=== PATIENT | female | born 1975 | race Caucasian/White ===

== ENCOUNTER 2020-08-04 16:57 | Emergency (ER) | payer OTHER, SELFPAY ==
[2020-08-04] VITALS (12 sets, daily range): BP systolic 136–158; BP diastolic 78–110; PULSE 90–113; RESP 21–32; TEMP 36.2; O2SAT 94–99; BMI 38.4
--- NOTE | 2020-08-04 17:50 | DI.RAD.S_ITS ---
PROCEDURE: XR CHEST 1V INDICATIONS: sob TECHNIQUE: One view of the chest was acquired. COMPARISON: None. FINDINGS: Surgical changes and devices: None. Lungs and pleura: Lungs are clear. No pleural effusions or pneumothorax. Mediastinum: Mediastinal contours appear normal. Heart size is normal. Bones and chest wall: No suspicious bony lesions. Overlying soft tissues appear unremarkable. IMPRESSION: No acute disease. Dictated by: Scottie Henderson M.D. on 08/04/2020 at 18:15 Approved by: Scottie Henderson M.D. on 08/04/2020 at 18:16
[2020-08-04 18:15] LABS: Add Manual Diff / Slide Review NO; Basophils Absolute Auto 100 /uL (0-100); Basophils Percent Auto 1.4 % (0-2); Eosinophils Absolute Auto 100 /uL (0-450); Eosinophils Percent Auto 0.8 % (2-4); Hematocrit 44.1 % (36-46); Hemoglobin 14.9 g/dL (12.0-16.0); Lymphocytes Absolute Auto 2600 /uL (1100-4500); Lymphocytes Percent Auto 26.3 % (25-40); Mean Corpuscular HGB Conc 33.8 % (30-36); Mean Corpuscular Hemoglobin 30.5 PG (26-34); Monocytes Absolute Auto 600 /uL (0-900); Monocytes Percent Auto 6.2 % (3-14); Neutrophils Absolute Auto 6500 /uL (1500-7000); Neutrophils Percent Auto 65.3 % (50-75); Platelet Count 367 X10^3/uL (150-400); Red Blood Cell Count 4.89 X10^6/uL (4.0-5.2); White Blood Cell Count 9.9 X10^3/uL (4.5-11.0)
[2020-08-04 18:18] LABS: D Dimer < 200 ng/mL (<230)
[2020-08-04 18:20] LABS: Acetaminophen < 10 ug/mL (10-30); Ethanol (ETOH) < 10 mg/dL; Salicylate < 1.0 mg/dL (<20)
[2020-08-04] MEDS: hydrOXYzine pamoate 25 MG CAPSULE 50 MG PO (18:20)
[2020-08-04 18:21] LABS: Alanine Aminotransferase 22 IU/L (<35); Albumin 4.6 g/dL (3.5-5.0); Albumin Globulin Ratio 1.2 (1.0-2.8); Alkaline Phosphatase 74 U/L (38-126); Amylase 113 U/L (30-110); Aspartate Aminotransferase 22 IU/L (14-36); BUN Creatinine Ratio 11.3 (6-22); Bilirubin Total 0.4 mg/dL (0.2-1.3); Blood Urea Nitrogen 9 mg/dL (7-17); Calcium 10.1 mg/dL (8.4-10.2); Carbon Dioxide 27 mmol/L (22-32); Chloride 103 mmol/L (98-107); Creatine Kinase 67 U/L (30-135); Estimated Glomerular Filt Rate > 60.0 mL/min (>60); Glucose 104 mg/dL (70-100); HEMOLYSIS 23 (0-50); Lipase 91 U/L (23-300); Magnesium 1.9 mg/dL (1.6-2.3); Potassium 4.2 mmol/L (3.4-5.1); Sodium 138 mmol/L (137-145); Total Protein 8.6 g/dL (6.3-8.2)
[2020-08-04] MEDS: SODIUM CHLORIDE 0.9% 1,000 ML 1000 ML IV (18:21)
[2020-08-04 18:26] LABS: UR Morphine/Opiate cutoff 300 Negative (Negative); Ur Creatinine Normal (Normal); Ur Specific Gravity Normal (Normal); Urine Amphetamines Negative (Negative); Urine Barbiturates Negative (Negative); Urine Benzodiazepines Negative (Negative); Urine Cocaine Negative (Negative); Urine MDMA Negative (Negative); Urine Methadone Negative (Negative); Urine Methamphetamines Negative (Negative); Urine Oxycodone Negative (Negative); Urine Phencyclidine Negative (Negative); Urine Tetrahydrocannabinol Negative (Negative); Urine Tricyclic Antidepressant Negative (Negative); Urine pH Normal (Normal)
[2020-08-04 18:33] LABS: NT-proBNP (BNP-Adult 18+) 65 pg/mL (<125); Troponin I < 0.012 ng/mL (0.01-0.034)
[2020-08-04 18:55] LABS: Thyroid Stimulating Hormone 1.37 uIU/mL (0.47-4.68)
[2020-08-04 19:58] LABS: Creatine Kinase 55 U/L (30-135)
[2020-08-04 20:11] LABS: Troponin I < 0.012 ng/mL (0.01-0.034)
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
== END 2020-08-04 21:30 | disposition home or self-care (01) ==
PROVIDERS: Emergency Provider Nurse Practitioner Family; PCP Family Medicine
DX: F41.0 Panic disorder [episodic paroxysmal anxiety] (principal); R00.0 Tachycardia, unspecified; F41.8 Other specified anxiety disorders
CPT/HCPCS: 36415; 71045; 80053; 80305; 80320; 80329; 81003; 81025; 82150; 82550; 83690; 83735; 83880; 84443; 84484; 85025; 85379; 93005; 96360; 96361; 99284; G0480

== ENCOUNTER → 2020-10-04 08:56 | Outpatient (CLI) | payer OTHER, SELFPAY ==
[2020-10-04 10:11] LABS: COVID19 -Nasal RAPID Negative (Negative)
== END ==
PROVIDERS: PCP Family Medicine; Visit Provider Surgery
DX: Z01.812 Encounter for preprocedural laboratory examination (principal); Z11.59 Encounter for screening for other viral diseases
CPT/HCPCS: 87635; C9803

== ENCOUNTER 2020-10-05 12:00 | Day surgery (SDC) | payer OTHER, SELFPAY ==
[2020-10-05 12:17] VITALS: BP 138/90; PULSE 98; RESP 16; TEMP 36.6; O2SAT 99; BMI 38.0
[2020-10-05] MEDS: LACTATED RINGERS 1,000 ML 200 ML IV (12:41)
--- NOTE | 2020-10-05 13:06 | PM.HP.1 ---
History of Present Illness History of Present Illness Date Patient Seen: 10/05/20 Time Patient Seen: 13:07 Chief complaint: SDC Narrative: 45-year-old female morbidly obese significant gastroesophageal reflux here for EGD. Please see H and P from August 2020 for further detail, no interval changes in health. Patient History Medical History Anxiety with depression Bladder problem Chicken pox (~1981) Chronic back pain Chronic cough (~2018) Chronic low back pain Degenerative arthritis of hip (~2014) Fibromyalgia (~2014) GERD (gastroesophageal reflux disease) Heavy menstrual period Hypertension (~1998) Osteoarthritis (~2014) Painful menstrual periods Panic attacks PTSD (post-traumatic stress disorder) Surgical History Anesthesia H/O tubal ligation (~2005) Family & Social History Family History Father Hyperlipidemia Hypertension Heart disease Mother Cancer Depression Brother Mental health problem Grandfather Cancer Family/Other Mental health problem Social History: household members significant other Tobacco & Substance use: Tobacco type cigarettes Smoking Status Current every day smoker Smoking packs per day 0.5 alcohol intake never alcohol intake frequency holiday/special occasion Substance Use Type marijuana Meds Home Medications and Allergies Home Medications Medication Instructions Recorded Confirmed Type bupropion HCl 200 mg tablet,12 hr 100 mg PO DAILY 08/02/20 10/05/20 History sustained-release hydroxyzine HCl 50 mg tablet 50 mg PO TID PRN #60 tab 08/22/20 10/05/20 Rx omeprazole 20 mg capsule,delayed 20 mg PO BID #60 cap 08/22/20 10/05/20 Rx release prazosin 1 mg capsule 1 mg PO BEDTIME #90 cap 08/31/20 10/05/20 Rx Allergies Allergy/AdvReac Type Severity Reaction Status Date / Time No Known Drug Allergies Allergy Verified 10/05/20 12:14 Review of Systems Review of Systems Narrative: A 10 point review of systems is negative except as noted in the HPI Exam Vital Signs (past 8 hours): - 10/05/20 12:17 Temperature 97.9 F Pulse Rate 98 H Respiratory Rate 16 Blood Pressure 138/90 Pulse Oximetry 99 Oxygen Delivery Method Room Air Oxygen Flow Rate 0 Narrative Exam Narrative: General-no acute distress, obese female HEENT-moist mucous membranes, no scleral icterus Neck-supple, no lymphadenopathy Chest- non labored respirations, clear to auscultation bilaterally Cardiac-regular rate no peripheral edema Abdomen-soft, nontender, non distended Extremities-warm, well perfused Neurological-alert and oriented, no focal deficits Assessment & Plan Assessment & Plan narrative: 45-year-old female morbidly obese with GERD here for elective EGD. Technical details of procedure were discussed. Procedural risks including bleeding infection perforation missed diagnosis need for further procedure were discussed. Questions have been answered she is in agreement with this plan.
--- NOTE | 2020-10-05 13:25 | PM.OP.ENDO ---
Operative Date/Time/Diagnoses Date of procedure: 10/05/20 Time of procedure: 13:25 Pre-op diagnosis: GERD Post-op diagnosis: other (hiatal hernia) Procedure & Clinicians Study performed: Esophagoduodenoscopy Same procedure as scheduled: Yes Indications: 45-year-old obese female with worsening GERD here for EGD Surgeon: Enoch Ledezma Procedure Notes Procedure in detail: Patient placed in left lateral decubitus position. Time out was performed. Procedural sedation was administered with Versed and Fentanyl. A bite block was placed. the scope was inserted into the mouth and advanced through the esophagus and into the stomach. The pylorus was intubated and the duodenum was normal to the 1st portion. The scope was retroflexed within the stomach and there was a small hiatal hernia. No ulcers, or gastritis. The scope was withdrawn into the esophagus the Z line was seen at 40 cm from the incisions. There was no Weston's esophagitis or masses or strictures. Stomach was desufflated and scope removed. Patient tolerated procedure well. Sedation minutes: 12 Findings: hiatal hernia Specimen(s): none sent Complications: none Impression: Hiatal hernia Post-procedure Recommendations: Continue medication(s) (Omeprazole) Follow up: as needed Disposition: same day surgery
[2020-10-05] MEDS: LIDOCAINE 4% SOLN 50 ML 20 ML TOP (13:29)
[2020-10-05 13:30] VITALS: BP 111/71; PULSE 88; RESP 18; TEMP 36.4; O2SAT 99
[2020-10-05] MEDS: MIDAZOLAM 5 MG/5 ML VIAL IV (13:30)
[2020-10-05] MEDS: fentaNYL 250 MCG/5 ML INJ IV (13:31)
[2020-10-05 13:35] VITALS: BP 113/73; PULSE 84; RESP 18; O2SAT 99
[2020-10-05 13:40] VITALS: BP 118/75; PULSE 80; RESP 18; O2SAT 96
[2020-10-05 13:45] VITALS: BP 120/78; PULSE 92; RESP 16; O2SAT 97
[2020-10-05 13:50] VITALS: BP 125/76; PULSE 89; RESP 18; TEMP 36.5; O2SAT 96
--- NOTE | 2020-10-05 14:56 | SUR.OPER ---
documented on pyxis fentanyl 100 wasted that was actually given. see EMAR. pharmacy notified
== END 2020-10-05 14:05 | disposition home or self-care (01) ==
PROVIDERS: PCP Family Medicine; Referring Provider Surgery; Visit Provider Surgery
PROC: 0DJ08ZZ Inspection of Upper Intestinal Tract, Via Natural or Artificial Opening Endoscopic (ICD-10-PCS; CPT 43235; principal; 2020-10-05 13:00)
DX: K21.9 Gastro-esophageal reflux disease without esophagitis (principal); K44.9 Diaphragmatic hernia without obstruction or gangrene; E66.01 Morbid (severe) obesity due to excess calories; I10 Essential (primary) hypertension; F41.9 Anxiety disorder, unspecified; F17.210 Nicotine dependence, cigarettes, uncomplicated
CPT/HCPCS: 43235; 99152; J2250; J3010

== ENCOUNTER → 2021-10-12 11:23 | Outpatient (CLI) | payer SELFPAY ==
--- NOTE | 2021-10-12 | DI.MRI.S_ITS ---
PROCEDURE: MR CERVICAL SPINE WO CON INDICATIONS: Radiculopathy, cervical region TECHNIQUE: Noncontrast sagittal T1 spin echo and T2 fast spin echo, sagittal STIR, foraminal oblique sagittal T2 fast spin echo, and axial gradient echo and T2 fast spin echo through the cervical spine. COMPARISON: None. FINDINGS: Image quality: This examination is limited by involuntary motion artifact. Alignment and Curvature: There is straightening of the normal cervical lordosis. No focal AP alignment abnormality is seen. Bone Marrow: Marrow demonstrates normal overall signal. Spinal Cord: Visualized spinal cord has normal size and signal. No cerebellar tonsillar herniation. Paraspinous Soft Tissues: No paravertebral masses. Prevertebral soft tissues are normal in thickness. C2-C3: Normal appearance. C3-C4: Normal appearance. C4-C5: The disc height and disc signal are relatively well preserved. A mild degree of generalized disc osteophyte complex is seen. There is moderate right-sided and [id number] left-sided facet hypertrophy seen. Minimal to mild bilateral neural foraminal narrowing can be seen. Minimal central canal narrowing is seen. C5-C6: The disc height and disc signal are relatively well preserved. A mild degree of generalized disc osteophyte complex is seen. Mild to moderate facet hypertrophy is seen. No significant neural foraminal narrowing is seen. Minimal to mild central canal narrowing is seen. C6-C7: Minimal to mild loss of disc height and disc signal can be seen. Moderate disc osteophyte complex is seen, with a central/left disc osteophyte extrusion, as on series 3, image 30 and on series 4, image 9. Mild facet joint hypertrophy is seen. Mild to moderate bilateral neural foraminal narrowing can be seen. Moderate to severe central canal narrowing is seen, with associated mass effect upon the ventral spinal cord. C7-T1: The disc height and disc signal are relatively well preserved. A mild degree of generalized disc osteophyte complex is seen. Mild to moderate bilateral neural foraminal narrowing can be seen. Minimal central canal narrowing is seen. IMPRESSION: At the C6-C7 level, there is focal degenerative change seen, with a moderate to severe central disc osteophyte extrusion, with associated moderate to severe central canal narrowing and mass effect upon the ventral spinal cord. Milder degenerative changes are seen elsewhere. Straightening of the normal cervical lordosis is seen, which is commonly observed in patients with muscular spasm. Dictated by: Juan Aquino M.D. on 10/12/2021 at 11:21 Approved by: Juan Aquino M.D. on 10/12/2021 at 11:25
== END ==
PROVIDERS: PCP Physician Assistant; Referring Provider Physician Assistant; Visit Provider Physician Assistant
DX: M47.22 Other spondylosis with radiculopathy, cervical region (principal); M50.123 Cervical disc disorder at C6-C7 level with radiculopathy; M48.02 Spinal stenosis, cervical region
CPT/HCPCS: 72141